=== PATIENT | female | born 1995 | race Hispanic/Latino ===

== ENCOUNTER 2018-03-21 13:12 | Emergency (ER) | payer BC, OTHER ==
[2018-03-21 13:46] LABS: #Eosinphils 0.2 thou/uL (0.0-0.7); #Lymphocytes 2.2 thou/uL (1.20-3.40); #Monocytes 0.6 thou/uL (0.11-0.59); #Neutrophils 4.5 thou/uL (1.40-6.50); %Basophils 0.3 % (0.0-1.0); %Eosinophils 2.9 % (0.0-10.0); %Lymphocytes 29.2 % (28.0-48.0); %Monocytes 7.7 % (0.0-4.0); %Neutrophils 59.9 % (31.0-61.0); Hemoglobin 8.4 g/dL (12.0-16.0); Mean Corpuscular HGB CONC 32.9 g/dL (32.0-36.0); Mean Corpuscular Hemoglobin 29.2 pg (25.0-35.0); Mean Corpuscular Volume 88.7 fL (78.0-98.0); Mean Platelet Volume 7.4 fL (7.4-10.4); Platelet Count 254 thou/uL (130-400); RBC Distribution Width 12.6 % (11.5-14.5); Red Blood Cell (RBC) Count 2.86 mill/uL (4.00-5.20); White Blood Cell (WBC) Count 7.5 thou/uL (4.8-10.8)
--- NOTE | 2018-03-21 14:05 | RAD ---
SINGLE VIEW OF THE CHEST: Comparison: None. History: Fall with leg swelling, abdominal pain, dyspnea, fever. FINDINGS: Single view of the chest shows a normal sized cardiomediastinal silhouette. There is no evidence of c onsolidation, mass, or pleural effusion. The bones are unremarkable. IMPRESSION: No evidence of acute cardiopulmonary disease. POS: [facility]
[2018-03-21 14:09] LABS: ALT (SGPT) 22 U/L (8-55); AST (SGOT) 22 U/L (5-34); Albumin 3.2 g/dL (3.5-5.0); Alkaline Phosphatase 99 U/L (40-150); Anion Gap 11 mmol/L (10-20); BUN (Urea Nitrogen) 9 mg/dL (7.0-18.7); Bilirubin, Total 0.3 mg/dL (0.2-1.2); Calc. Creatinine Clearance 0 mL/min (70-130); Calcium 9.2 mg/dL (7.8-10.44); Carbon Dioxide 26 mmol/L (22-29); Chloride 107 mmol/L (98-107); Estimated GFR-MDRD Greater than 90; Globulin 2.6 g/dL (2.4-3.5); Glucose 81 mg/dL (70-105); Potassium 3.9 mmol/L (3.5-5.1); Protein, Total 5.8 g/dL (6.0-8.3); Sodium 140 mmol/L (136-145)
[2018-03-21 14:44] LABS: Bilirubin Negative (Negative); Blood, Urine Small (Negative); Clarity CLEAR (Clear); Glucose, Urine (Dipstick) Negative (Negative); Leukocyte Small (Negative); Nitrite Negative (Negative); Protein, Urine (Dipstick) Negative (Neg-Trace); Specific Gravity, Urine 1.014 (1.002-1.036); Urobilinogen 0.2 mg/dL (0.2-1.0); pH, Urine 7.5 (5.0-9.0)
[2018-03-21 14:47] LABS: Bacteria/HPF None Seen HPF (None Seen); Hyaline Casts/LPF 0-3 HYALINE CAST LPF (0-3 Hyaline); Squamous Epithelial 0-3 HPF (0-3); WBC/HPF 0-3 HPF (0-3)
[2018-03-21 15:35] LABS: CKMB 0.8 ng/mL (0-6.6); Troponin I Less than 0.010 ng/mL (< 0.028)
== END 2018-03-21 16:07 | disposition home or self-care (01) ==
LOC: ERS 13:12
DX: O12.05 Gestational edema, complicating the puerperium (principal); G89.18 Other acute postprocedural pain
CPT/HCPCS: 36415; 71045; 80053; 81003; 81015; 82550; 82553; 83605; 83880; 84484; 85025; 86850; 86900; 86901

== ENCOUNTER 2019-04-05 15:25 | Emergency (ER) | payer BC, OTHER ==
[2019-04-05] MEDS ORDERED: diphenhydrAMINE 25 MG CAP ONE (15:44)
[2019-04-05] MEDS ORDERED: Dexamethasone 10 MG/ML VIAL ONE (15:44)
== END 2019-04-05 17:09 | disposition home or self-care (01) ==
LOC: ERS 15:25
DX: L50.0 Allergic urticaria (principal)
CPT/HCPCS: 99283; J1100; Q0163

== ENCOUNTER 2019-07-03 17:19 | Emergency (ER) | payer BC, MEDICAID ==
[2019-07-03 17:59] LABS: #Lymphocytes 2.3 thou/uL (1.20-3.40); #Monocytes 0.7 thou/uL (0.11-0.59); #Neutrophils 5.8 thou/uL (1.40-6.50); %Basophils 0.1 % (0.0-1.0); %Eosinophils 0.4 % (0.0-10.0); %Lymphocytes 26.4 % (21.0-51.0); %Monocytes 7.5 % (0.0-10.0); %Neutrophils 65.6 % (42.0-75.0); Hemoglobin 14.2 g/dL (12.0-16.0); Mean Corpuscular HGB CONC 35.3 g/dL (32.0-36.0); Mean Platelet Volume 8.9 fL (7.4-10.4); Platelet Count 196 thou/uL (130-400); RBC Distribution Width 11.2 % (11.5-14.5); Red Blood Cell (RBC) Count 4.74 mill/uL (4.20-5.40); White Blood Cell (WBC) Count 8.8 thou/uL (4.8-10.8)
[2019-07-03 18:19] LABS: ALT (SGPT) 9 U/L (8-55); AST (SGOT) 11 U/L (5-34); Albumin 4.2 g/dL (3.5-5.0); Alkaline Phosphatase 60 U/L (40-110); Anion Gap 14 mmol/L (10-20); BUN (Urea Nitrogen) 6 mg/dL (7.0-18.7); Bilirubin, Total 0.5 mg/dL (0.2-1.2); Calc. Creatinine Clearance 0 mL/min (70-130); Calcium 9.8 mg/dL (7.8-10.44); Carbon Dioxide 22 mmol/L (22-29); Chloride 104 mmol/L (98-107); Estimated GFR-MDRD Greater than 90; Globulin 3.3 g/dL (2.4-3.5); Glucose 90 mg/dL (70-105); Potassium 3.5 mmol/L (3.5-5.1); Protein, Total 7.5 g/dL (6.0-8.3); Sodium 136 mmol/L (136-145)
[2019-07-03] MEDS ORDERED: Ondansetron PF 4 MG/2 ML Vial ONE (19:16)
== END 2019-07-03 20:41 | disposition home or self-care (01) ==
LOC: ERS 17:19
DX: O21.0 Mild hyperemesis gravidarum (principal); Z3A.12 12 weeks gestation of pregnancy
CPT/HCPCS: 36415; 80053; 83690; 85025; 96361; 96374; J2405

== ENCOUNTER 2019-08-26 10:39 | Outpatient (CLI) | payer BC, MEDICAID ==
--- NOTE | 2019-08-26 11:52 | ULT ---
OB ULTRASOUND: HISTORY: anatomy and cervical length. FINDINGS: A single live intrauterine gestation is seen with measurements corresponding to an estimated gestatio nal age of 18 weeks 6 days and an STIVEN of 01/21/2020. The estimated weight measures 269 g or 9 o unces (30% by Hadlock criteria). BIOMETRY: BPD: 3.93 cm (18 weeks 0 days) HC: 15.87 cm (18 weeks 6 days) AC: 13.46 cm (19 weeks 0 days) FL: 3.00 cm (19 weeks 2 days) heart rate measures 152 beats per minute. Placenta is posteriorly located without evidence of p lacenta previa. ANIA measures 11.6 cm. Cervical length measures 4.1 cm. A three vessel cord, cord insertion, kidneys, bladder, stomach, four chambered heart, lateral v entricles, cerebellum, spine, and upper and lower extremities are visualized without definite a nomalies. The lips and nose are not seen. IMPRESSION: Single live intrauterine of 18 weeks' 6 days' estimated gestational age and an estimated da te of delivery of 01/21/2020. POS: [facility]
== END 2019-08-26 10:40 | disposition home or self-care (01) ==
LOC: BICULT 10:39
PROVIDERS: ATTEND Family Medicine
DX: Z34.82 Encounter for supervision of other normal pregnancy, second trimester (principal); Z3A.18 18 weeks gestation of pregnancy
CPT/HCPCS: 76805

== ENCOUNTER 2019-12-25 12:44 | Day surgery (SDC) | payer BC, OTHER ==
[2019-12-25 13:08] VITALS: BP 108/62; TEMP 98; BMI 31.9
[2019-12-25] MEDS ORDERED: hydrALAZINE 20 MG/ML VIAL SLOW IVP PRN (14:06)
--- NOTE | 2019-12-25 14:41 | PRG ---
DATE OF SERVICE: 12/25/2019 TIME OF SERVICE: 1400 hours. PRESENTING COMPLAINT: A 36 weeks' gestation contractions, prior section. HISTORY OF PRESENT ILLNESS: Ms. Diop is a 24-year-old 2, para 1, EDC of 01/17, who presents complaining of contractions earlier this morning every 3 to 5 minutes. She states now they have gone 10 to 15 minutes apart. She denies rupture of membranes, vaginal bleeding. Reports an active fetus. [employer] HISTORY: is noted. Blood type A positive. Antibody negative. Pap negative. Rubella immune. VDRL nonreactive. Hepatitis B, GC, chlamydia negative. PAST MEDICAL HISTORY: Denies. PAST SURGICAL HISTORY: Denies. ALLERGIES: DENIES. MEDICATIONS: vitamins and Zofran. SOCIAL HISTORY: Denies tobacco, alcohol, or IV drug abuse. FAMILY HISTORY: Noncontributory. REVIEW OF SYSTEMS: Noncontributory. PHYSICAL EXAMINATION: GENERAL: female, resting comfortably, in no distress. VITAL SIGNS: Blood pressure 108/74, pulse 92, respirations 18, temperature 98.4. HEENT: Within normal limits. LUNGS: Clear to auscultation bilaterally. HEART: Regular rate and rhythm. ABDOMEN: Soft, nontender. Occasional contractions noted. FHTs 140s. Vulva . Cervix closed, long, and high. EXTREMITIES: No clubbing, cyanosis, or edema. LABORATORY STUDIES: monitoring is carried out for greater than 30 minutes, which revealed a category 1 heart rate tracing. Contractions every 10 to 15 minutes of moderate intensity. IMPRESSION: [place] contractions. No evidence of active labor. 36 weeks' gestation, prior section x1. PLAN: Reassurance. P.o. hydration. Discharge home. Keep scheduled followup in 4 days at [facility]. Job ID: [id number]
== END 2019-12-25 14:10 | disposition home or self-care (01) ==
LOC: L&D/OP 12:44
PROVIDERS: ATTEND Family Medicine
DX: O47.03 False labor before 37 completed weeks of gestation, third trimester (principal); O34.219 Maternal care for unspecified type scar from previous cesarean delivery; Z3A.36 36 weeks gestation of pregnancy; Z79.899 Other long term (current) drug therapy
CPT/HCPCS: 99282

== ENCOUNTER 2020-01-12 09:40 | Inpatient (IN) | payer BC, OTHER ==
[2020-01-12] MEDS ORDERED: Bicitra 30 ML UDCUP PO SCH (10:24)
[2020-01-12] MEDS ORDERED: CEFAZOLIN 2 GM in Premix Bag 1 BAG IVPB SCH (10:24)
[2020-01-12] MEDS ORDERED: hydrALAZINE 20 MG/ML VIAL SLOW IVP PRN ×2 (10:24→17:05)
[2020-01-12] MEDS ORDERED: Promethazine HCl 25 MG/ML VIAL IM PRN ×2 (10:24→15:09)
[2020-01-12] MEDS ORDERED: Ondansetron PF 4 MG/2 ML Vial IVP PRN ×3 (10:24→17:05)
[2020-01-12 10:27] VITALS: BMI 32.5
[2020-01-12] MEDS: Lactated Ringer's 1,000 ML IV SCH ×2 (10:45→11:07)
[2020-01-12 11:06] LABS: Mean Corpuscular HGB CONC 32.9 g/dL (32.0-36.0); Mean Corpuscular Hemoglobin 27.8 pg (27.0-31.0); Mean Corpuscular Volume 84.5 fL (78.0-98.0); Mean Platelet Volume 10.8 fL (7.4-10.4); Platelet Count 183 thou/uL (130-400); RBC Distribution Width 13.9 % (11.5-14.5); Red Blood Cell (RBC) Count 3.96 mill/uL (4.20-5.40); White Blood Cell (WBC) Count 11.1 thou/uL (4.8-10.8)
[2020-01-12 11:31] LABS: Hep B Surf Ag Non-Reactive S/CO (NonReactive); Syphilis Antibody Nonreactive (Nonreactive); Syphilis Antibody Index 0.04 S/CO (<1.00 Non-Reactive)
[2020-01-12] MEDS ORDERED: PHENYLEPHRINE-NS 100 MCG/ML 10 ML SYRINGE ONE (13:51)
[2020-01-12] MEDS ORDERED: EPHEDRINE 25 MG/5 ML SYRINGE ONE (13:51)
[2020-01-12] MEDS ORDERED: MORPHINE 5 MG/10 ML PF VIAL ONE (13:51)
[2020-01-12] MEDS ORDERED: Ketorolac Tromethamine 30 MG/ML VIAL ONE (13:51)
[2020-01-12] MEDS ORDERED: Ondansetron PF 4 MG/2 ML Vial ONE (13:51)
[2020-01-12] MEDS ORDERED: Oxytocin 10 UNITS/ML VIAL ONE ×2 (13:52→14:49)
[2020-01-12] MEDS ORDERED: Fentanyl 100 MCG/2 ML VIAL ONE (14:32)
[2020-01-12] MEDS ORDERED: Promethazine HCl 25 MG SUPP PR PRN (15:09)
[2020-01-12] MEDS ORDERED: Naloxone HCl 0.4 mg/ml Vial IVP PRN ×2 (15:09)
[2020-01-12] MEDS ORDERED: Ketorolac Tromethamine 30 MG/ML VIAL IVP PRN (15:09)
[2020-01-12] MEDS ORDERED: Naloxone HCl 0.4 mg/ml Vial IV PRN (15:09)
[2020-01-12] MEDS ORDERED: diphenhydrAMINE 50 MG/ML VIAL IVP PRN (15:09)
--- NOTE | 2020-01-12 15:11 | PDOC.OPDEL ---
OB Operative/Delivery Note Delivery Dr/Surgeon: Dr. Velazquez Assist: Dr. Pugh Pre-Delivery Diagnosis: scheduled section Procedure/Post Delivery Dx: repeat low transverse CS Weeks gestation: 39 (39w1d) Anesthesia: spinal - Findings A Sex: female - Additional Findings/Plan Placenta delivered: manual removal findings: low transverse hysterotomy without extension Estimated blood loss: 400mL Compilations/Other Findings: Preoperative Diagnosis: 1)Term intrauterine 2)Prior section x1 Postoperative Diagnosis: 1)Term intrauterine , delivered 2)Prior section x1 Anesthesia: spinal Indications: The patient is a 24 year old female at 39.1 weeks gestation who presents for a repeat scheduled . Procedure in Detail: After risks, benefits, and alternatives were explained to the patient, she gave informed consent. Pre-operative antibiotics included Cefazolin 2 gram IV. The patient was taken to the operating room and spinal anesthesia was initiated. She was placed in the supine position with a left tilt and prepped and draped in usual sterile fashion. A Pfannenstiel incision was made with a scalpel and carried down to the level of the fascia which was sharply nicked. The fascial cut was extended bilaterally with Gallardo scissors. The inferior and superior edges of the cut fascial edges were elevated with Thom clamps and the underlying rectus muscles were sharply and bluntly dissected free. The recti were divided digitally and retracted manually. The peritoneum was entered bluntly and retracted manually. Uterine adhesion noted over the lower uterine segment that was taken down with metzembaum scissors. Bladder blade was placed. A low transverse score was made with the scalpel and the uterus was entered in the midline bluntly. Clear fluid was seen. The hysterotomy was extended manually. The infant was noted to be vertex and was delivered easily with fundal pressure. Mouth and nares were bulb suctioned. Cord clamped and cut and grossly normal female infant was handed to waiting nurse. Cord blood was obtained. Placenta was manually extracted, found to be intact with 3 vessel cord and discarded. The uterus was externalized and the endometrium was curetted with a dry lap. The bladder blade was replaced and the uterus was closed with a running locking 0-Monocryl suture followed by a figure of eight suture with 0-vicryl over a bleeding portion. Following this hemostasis was noted. The abdomen was irrigated with saline and suctioned free of clots. Seprafilm was placed over the anterior aspect of the uterus. The uterus was internalized and the hysterotomy was again noted to be hemostatic. The peritoneum was closed with running, non-locking 3-0 vicryl suture. The rectus was examined with several oozing areas that were cauterized with the bovie and then rhys was placed for better hemostasis. Following this hemostasis was noted. The fascia was closed with a running non-locking 0-PDS suture. The subcutaneous tissue was irrigated and there were a few bleeders that were cauterized with the bovie. The subcutaneous layer was approximated with interrupted 3-0 vicryl suture. The skin was approximated with belkys and a pressure dressing was placed. All counts were correct. The patient tolerated the procedure well and was taken to the recovery room in stable condition. Time of delivery: 1423 on 01/12/20 Estimated Blood Loss: 400 ml Complications: None Specimens: Cord blood sent to lab for blood type Findings: Grossly normal female infant went to nursery. Grossly normal placenta with 3 vessel cord discarded. Drains: Stubbs to gravity draining clear urine Post delivery plan: routine recovery
[2020-01-12] MEDS ORDERED: Communication Order-Pharmacy FS SCH (15:15)
[2020-01-12] MEDS ORDERED: Bisacodyl 10 MG SUPP PR PRN (17:05)
[2020-01-12] MEDS ORDERED: diphenhydrAMINE 25 MG CAP PO PRN (17:05)
[2020-01-12] MEDS ORDERED: Lanolin Ointment 7 GM TUBE TOP PRN (17:05)
[2020-01-12] MEDS ORDERED: NS / Oxytocin 40 units/1000ml 1,000 ML IV SCH (17:05)
[2020-01-12] MEDS ORDERED: Adacel (T-DAP) 0.5 ML SYRINGE IM ONE (17:05)
[2020-01-12] MEDS ORDERED: Meperidine HCl/PF 25 MG/ML VIAL IM PRN (17:05)
[2020-01-12] MEDS ORDERED: Morphine 2 MG/ML SYRINGE SLOW IVP PRN (19:34)
[2020-01-12] MEDS: Ketorolac Tromethamine 30 MG/ML VIAL IVP SCH (20:58)
[2020-01-12] MEDS: Docusate Calcium (SURFAK) 240 MG CAP PO SCH (21:02)
[2020-01-12] MEDS: Ferrous Sulfate 325 MG TAB PO SCH (21:11)
[2020-01-13] MEDS: Simethicone Chewable 80 MG TAB PO PRN ×3 (01:30→12:10)
[2020-01-13] MEDS: Ketorolac Tromethamine 30 MG/ML VIAL IVP SCH ×2 (02:33→08:05)
[2020-01-13] MEDS: HYDROcodone/Acetaminophen 5/325 mg Tablet PO PRN ×3 (04:58→15:30)
[2020-01-13 06:15] LABS: Hemoglobin 9.6 g/dL (12.0-16.0); Mean Corpuscular HGB CONC 33.4 g/dL (32.0-36.0); Mean Corpuscular Volume 83.8 fL (78.0-98.0); Mean Platelet Volume 9.2 fL (7.4-10.4); Platelet Count 132 thou/uL (130-400); RBC Distribution Width 13.8 % (11.5-14.5); Red Blood Cell (RBC) Count 3.41 mill/uL (4.20-5.40); White Blood Cell (WBC) Count 14.6 thou/uL (4.8-10.8)
[2020-01-13] MEDS: Prenatal Vitamin 1 TAB PO SCH (08:05)
[2020-01-13] MEDS: Docusate Calcium (SURFAK) 240 MG CAP PO SCH ×2 (08:05→21:34)
[2020-01-13] MEDS: Ferrous Sulfate 325 MG TAB PO SCH ×2 (08:05→21:35)
[2020-01-13] MEDS ORDERED: Sodium Chloride 0.9% 10 ML ONE (08:07)
[2020-01-13] MEDS: Ibuprofen 800 MG TAB PO SCH ×2 (13:49→21:34)
[2020-01-14] MEDS: HYDROcodone/Acetaminophen 5/325 mg Tablet PO PRN ×3 (04:02→19:57)
[2020-01-14] MEDS: Ibuprofen 800 MG TAB PO SCH ×3 (05:43→22:38)
[2020-01-14] MEDS: Ferrous Sulfate 325 MG TAB PO SCH ×2 (08:33→22:38)
[2020-01-14] MEDS: Prenatal Vitamin 1 TAB PO SCH (08:33)
[2020-01-14] MEDS: Docusate Calcium (SURFAK) 240 MG CAP PO SCH ×2 (08:33→19:57)
[2020-01-15] MEDS: Ibuprofen 800 MG TAB PO SCH ×2 (06:38→14:28)
[2020-01-15 08:01] VITALS: BP 123/67; TEMP 98.8
[2020-01-15] MEDS: Ferrous Sulfate 325 MG TAB PO SCH (08:40)
[2020-01-15] MEDS: Docusate Calcium (SURFAK) 240 MG CAP PO SCH (08:40)
[2020-01-15] MEDS: Prenatal Vitamin 1 TAB PO SCH (08:40)
[2020-01-15] MEDS: HYDROcodone/Acetaminophen 5/325 mg Tablet PO PRN (08:41)
--- NOTE | 2020-01-16 07:21 | PQF ---
Natividad Andrade ROLAND R MD [id number] CLINICAL DOCUMENTATION CLARIFICATION FORM: POST DISCHARGE Addendum to original discharge summary date: ____ Late entry note date: __ DATE:01/16/2020 ATTN:Dr Marcus Marsh Please exercise your independent, professional judgment in responding to the clarification form. Clinical indicators are provided on the bottom of this form for your review Please check appropriate box(s): [ ] Acute blood loss anemia [ ] Post-op anemia related to acute blood loss [ ] Chronic Anemia related to [ ] Other diagnosis [ ] Unable to determine In addition, please specify: Present on Admission (POA): [ ] Yes [ ] No [ ] Unable to determine For continuity of documentation, please document condition throughout progress notes and discharge summary. Thank You. CLINICAL INDICATORS - SIGNS / SYMPTOMS / LABS Vital Signs BP: 01/1169=390/54 01/12=99/51 01/13=98/52 Laboratory 01/11 RBC 3.96, Hgb 11.0, Hct 33.5 Laboratory 01/12 RBC 3.41, Hgb 9.6, hct 28.6 L&D notes p2 01/11 Estimated blood loss: 400 ml RISK FACTORS L&D notes p1 01/11 39 weeks of gestation L&D notes p1 01/11 Prior C/S L&D notes p1 01/11 s/p repeat transverse CS TREATMENTS: NOV 25 Ferrous Sulfate 325 oral NOV 25 IVF NS 1L Laboratory monitoring Collected 01/11 (This form is maintained as a part of the permanent medical record) 2014 [employer]. All Rights Reserved [email or web address]
== END 2020-01-15 15:00 | disposition home or self-care (01) | DRG 788 ==
LOC: L&D 09:40 → 3SW 17:24
PROVIDERS: ADMIT Family Medicine; ATTEND Family Medicine
PROC: 10D00Z1 Extraction of Products of Conception, Low, Open Approach (ICD-10-PCS; principal; 2020-01-12)
DX: O34.211 Maternal care for low transverse scar from previous cesarean delivery (principal); Z3A.39 39 weeks gestation of pregnancy; Z37.0 Single live birth
CPT/HCPCS: 36415; 51702; 85027; 86780; 86850; 86900; 86901; 87340; J0690; J1200; J1885; J2274; J2405; J2590; J3010

== ENCOUNTER 2023-08-27 07:58 | Emergency (ER) | payer MEDICAID, OTHER ==
[2023-08-27] MEDS ORDERED: Ondansetron PF 4 MG/2 ML Vial ONE (08:59)
[2023-08-27 10:02] LABS: #Monocytes 0.6 thou/uL (0.11-0.59); #Neutrophils 6.3 thou/uL (1.40-6.50); %Basophils 0.1 % (0.0-1.0); %Eosinophils 0.2 % (0.0-10.0); %Lymphocytes 19.4 % (21.0-51.0); %Monocytes 7.1 % (0.0-10.0); %Neutrophils 73.1 % (42.0-75.0); Hematocrit 40.4 % (36.0-47.0); Hemoglobin 14.2 g/dL (12.0-16.0); Mean Corpuscular HGB CONC 35.1 g/dL (32.0-36.0); Mean Corpuscular Hemoglobin 30.1 pg (27.0-31.0); Mean Corpuscular Volume 85.8 fl (78.0-98.0); Platelet Count 220 10x3/uL (130-400); RBC Distribution Width 11.9 % (11.5-14.5); Red Blood Cell (RBC) Count 4.71 mill/uL (4.20-5.40); White Blood Cell (WBC) Count 8.6 10x3/uL (4.8-10.8)
[2023-08-27 10:26] LABS: ALT (SGPT) 8 U/L (8-55); AST (SGOT) 12 U/L (5-34); Alkaline Phosphatase 55 U/L (40-110); Anion Gap 16 mmol/L (10-20); BUN (Urea Nitrogen) 8 mg/dL (7.0-18.7); Bilirubin, Total 0.7 mg/dL (0.2-1.2); Calc. Creatinine Clearance 0 mL/min (70-130); Calcium 9.8 mg/dL (7.8-10.44); Carbon Dioxide 24 mmol/L (22-29); Chloride 103 mmol/L (98-107); Estimated GFR 127; Globulin 3.5 g/dL (2.4-3.5); Glucose 89 mg/dL (70-105); Potassium 3.5 mmol/L (3.5-5.1); Protein, Total 7.5 g/dL (6.0-8.3); Sodium 139 mmol/L (136-145)
[2023-08-27 10:39] LABS: Bacteria/HPF 2+ HPF (None Seen); Bilirubin Negative (Negative); Blood, Urine Trace (Negative); CAUTI Indications for Culture Pelvic or flank pain; Clarity Turbid (Clear); Glucose, Urine (Dipstick) Normal (Negative); Ketone, Urine 60 mg/dL (Negative); Leukocyte 250 Leu/uL (Negative); Nitrite Negative (Negative); Protein, Urine (Dipstick) 50 mg/dL (Neg-Trace); Specific Gravity, Urine 1.028 (1.002-1.036); Squamous Epithelial 21-50 HPF (0-3); Urobilinogen Normal mg/dL (Less than 2); WBC/HPF 21-50 HPF (0-3); pH, Urine 5.5 (5.0-9.0)
[2023-08-27 10:40] LABS: Urine Culture Reflex Yes Yes
[2023-08-27] MEDS ORDERED: cefTRIAXone (ROCEPHIN) 1 GM VIAL ONE (11:04)
[2023-08-27] MEDS ORDERED: Sodium Chloride 0.9% 100 ML ONE (11:04)
== END 2023-08-27 12:30 | disposition home or self-care (01) ==
LOC: ERS 07:58
DX: O23.41 Unspecified infection of urinary tract in pregnancy, first trimester (principal); N39.0 Urinary tract infection, site not specified; Z3A.13 13 weeks gestation of pregnancy
CPT/HCPCS: 36416; 80053; 81001; 85025; 87077; 87086; 87186; 96361; 96374; 96375; J0696; J2405; J3490

== ENCOUNTER 2023-10-10 14:43 | Outpatient (CLI) | payer OTHER | END 2023-10-10 14:44 | disposition home or self-care (01) | LOC: BICULT 14:43 | PROVIDERS: ATTEND Family Medicine | DX: O09.892 Supervision of other high risk pregnancies, second trimester (principal); Z3A.19 19 weeks gestation of pregnancy | CPT/HCPCS: 76805 ==

== ENCOUNTER 2025-09-15 18:37 | Emergency (ER) | payer OTHER, SELFPAY ==
[2025-09-15] MEDS ORDERED: Ibuprofen 800 MG TAB ONE (19:44)
[2025-09-15] MEDS ORDERED: Acetaminophen 500 MG TAB ONE (19:44)
== END 2025-09-15 20:50 | disposition home or self-care (01) ==
LOC: ERS 18:37
DX: J10.1 Influenza due to other identified influenza virus with other respiratory manifestations (principal); R42 Dizziness and giddiness
CPT/HCPCS: 87081; 87428; 87430; 99283